=== PATIENT | female | born 1945 | race Caucasian/White ===

== ENCOUNTER 2018-07-19 19:42 | Emergency (ER) | payer MEDICARE, OTHER ==
[~2018-07-19] VITALS: Ht 165.1 cm; Wt 90.7 kg
[2018-07-19] MEDS ORDERED: TIKOSYN500 MCG (20:03)
[2018-07-19] MEDS ORDERED: METOPROLOL SUCC25 M1 (20:04)
[2018-07-19] MEDS ORDERED: COUMADIN 2.5MG2.5 M1 (20:05)
[2018-07-19] MEDS ORDERED: XALATAN2.5 ML (20:06)
[2018-07-19] MEDS ORDERED: LIQUITEARS15 ML (20:07)
[2018-07-19] MEDS ORDERED: FLONASE 0.05%50 MCG (20:08)
[2018-07-19] MEDS ORDERED: SYNTHROID100 MC1 (20:08)
[2018-07-19] MEDS ORDERED: LASIX 20 MG TAB20 MG (20:09)
[2018-07-19] MEDS ORDERED: KLOR-CON 1010 MEQ (20:09)
[2018-07-19] MEDS ORDERED: SIMVASTATIN40 MG (20:10)
[2018-07-19] MEDS ORDERED: OMEPRAZOLE40 MG (20:10)
[2018-07-19] MEDS ORDERED: TRAMADOL 50 MG50 MG (20:10)
[2018-07-19] MEDS ORDERED: ZANAFLEX2 MG (20:11)
[2018-07-19] MEDS ORDERED: ZALEPLON 10 MG10 M1 (20:12)
[2018-07-19] MEDS ORDERED: BENTYL 10 MG CA10 M1 (20:12)
[2018-07-19] MEDS ORDERED: NEURONTIN300 MG (20:13)
[2018-07-19] MEDS ORDERED: CYMBALTA30 MG (20:13)
[2018-07-19] MEDS ORDERED: TERBINAFINE HC250 MG (20:14)
[2018-07-19] MEDS ORDERED: MEDROLDOSEPACK PO (20:19)
[2018-07-19 20:48] VITALS: BP 140/73
== END 2018-07-19 20:49 | disposition home or self-care (01) ==
LOC: M.ERS 19:42
DX: T78.1XXA Other adverse food reactions, not elsewhere classified, initial encounter (principal); X58.XXXA Exposure to other specified factors, initial encounter; I48.91 Unspecified atrial fibrillation; E11.9 Type 2 diabetes mellitus without complications; M79.7 Fibromyalgia; Z96.652 Presence of left artificial knee joint; Z88.5 Allergy status to narcotic agent; Z88.0 Allergy status to penicillin; Z88.2 Allergy status to sulfonamides; Z88.8 Allergy status to other drugs, medicaments and biological substances

== ENCOUNTER 2021-02-08 06:49 | Emergency (ER) | payer MEDICARE, OTHER ==
[~2021-02-08] VITALS: Ht 165.1 cm; Wt 90.7 kg
[~2021-02-08 06:49] MED LIST: BENTYL 10 MG CA10 M1; COUMADIN 2.5MG2.5 M1; CYMBALTA30 MG; FLONASE 0.05%50 MCG; KLOR-CON 1010 MEQ; LASIX 20 MG TAB20 MG; LIQUITEARS15 ML; MEDROLDOSEPACK PO; METOPROLOL SUCC25 M1; NEURONTIN300 MG; OMEPRAZOLE40 MG; SIMVASTATIN40 MG; SYNTHROID100 MC1; TERBINAFINE HC250 MG; TIKOSYN500 MCG; TRAMADOL 50 MG50 MG; XALATAN2.5 ML; ZALEPLON 10 MG10 M1; ZANAFLEX2 MG
[2021-02-08] MEDS ORDERED: OMEPRAZOLE 20 M20 M1 PO (07:10)
[2021-02-08] MEDS ORDERED: VENLAFAXINE HCL75 MG PO (07:11)
[2021-02-08 07:50] LABS: ABSOLUTE EOSINOPHILS 0.1 thou/uL (0.0-0.7); ABSOLUTE LYMPHOCYTES 1.4 thou/uL (0.8-5.3); ABSOLUTE MONOCYTES 0.3 thou/uL (0.0-1.2); ABSOLUTE NEUTROPHILS 2.7 thou/uL (1.6-8.1); BASOPHILS 0.8 %; EOSINOPHILS 2.1 %; HEMATOCRIT 37.9 % (37.0-47.0); HEMOGLOBIN 12.3 gm/dL (12.0-15.0); LYMPHOCYTES 31.3 %; MCHC 32.5 g/dL (28.0-37.0); MONOCYTES 6.7 %; MPV 7.8 fl. (7.2-11.1); NUCLEATED RBCS 0 /100WBC; PLATELET COUNT* 186 thou/uL (150-400); POLYS 59.1 %; RBC 4.56 mil/uL (4.20-5.00); RDW-CV 14.7 % (10.5-14.5); WBC 4.5 thou/uL (4.0-11.0)
[2021-02-08] MEDS ORDERED: ZPAK PO (08:00)
[2021-02-08] MEDS ORDERED: DEXAMETHASONE 44 M1 PO (08:00)
[2021-02-08 08:19] LABS: INR 1.1
[2021-02-08 08:41] VITALS: BP 153/57
[2021-02-08 08:55] LABS: CALCIUM 8.8 mg/dL (8.5-10.1); CREATININE 0.9 mg/dL (0.6-1.3); POTASSIUM 4.5 mmol/L (3.5-5.1)
[2021-02-08 08:59] LABS: ALBUMIN 3.2 g/dL (3.4-5.0); TOTAL BILIRUBIN 0.4 mg/dL (<0.1-1.0)
== END 2021-02-08 08:43 | disposition home or self-care (01) ==
LOC: M.ERS 06:49
PROVIDERS: Family Medicine
DX: U07.1 COVID-19 (principal); E11.9 Type 2 diabetes mellitus without complications; I48.91 Unspecified atrial fibrillation; Z96.652 Presence of left artificial knee joint; Z95.0 Presence of cardiac pacemaker; Z90.710 Acquired absence of both cervix and uterus; Z98.890 Other specified postprocedural states; Z79.899 Other long term (current) drug therapy; Z79.01 Long term (current) use of anticoagulants; Z88.1 Allergy status to other antibiotic agents; Z88.5 Allergy status to narcotic agent; Z88.8 Allergy status to other drugs, medicaments and biological substances; Z88.2 Allergy status to sulfonamides; Z88.0 Allergy status to penicillin